=== PATIENT | female | born 1950 | race Caucasian/White ===

== ENCOUNTER 2020-04-13 18:22 | Inpatient (IN) ==
[2020-04-13 18:59] LABS: Basophils # 0.1 K/mcL (0.0-0.2); Basophils % 0.5 %; Eosinophils # 0.4 K/mcL (0.0-0.6); Eosinophils % 3.2 %; Hematocrit 40.5 % (35.3-44.9); Hemoglobin 13.4 g/dL (11.5-15.4); Immature Granulocytes % 0.5 % (0-4); Lymphocytes # 4.6 K/mcL (0.6-4.6); Lymphocytes % 33.7 %; Mean Corpuscular HGB Conc 33.1 g/dL (31.6-35.5); Mean Corpuscular Hemoglobin 31.8 pg (28.0-33.3); Mean Platelet Volume 9.4 fL (9.4-12.4); Monocytes # 1.3 K/mcL (0.0-1.3); Monocytes % 9.4 %; Neutrophils # 7.2 K/mcL (1.6-8.9); Platelet Count 221 K/mcL (140-400); Red Blood Count 4.22 M/mcL (3.82-4.97); Red Cell Distribution Width 12.8 % (11.5-14.5); Segmented Neutrophils % 52.7 %; White Blood Count 13.7 K/mcL (4.3-11.1)
[2020-04-13 19:19] LABS: BUN/Creatinine Ratio 20 (6-26); Blood Urea Nitrogen 18 mg/dL (8-23); Calcium 9.3 mg/dL (8.6-10.3); Carbon Dioxide 24 mEq/L (23-29); Chloride 103 mEq/L (98-107); Glucose 268 mg/dL (70-105); Osmolality,Calculated 293 (280-300); Sodium 136 mEq/L (136-145); eGFR For African Americans > 60 (> 60); eGFR For Non-African Americans > 60 (> 60)
[2020-04-13 19:20] LABS: Troponin I 0.03 ng/mL (< 0.04)
[2020-04-13] MEDS ORDERED: Nitroglycerin 0.4 MG TAB.SUBL SL ONE (19:46)
[2020-04-13] MEDS: Nitroglycerin 0.4 MG TAB.SUBL SL PRN ×2 (19:54→20:05)
[2020-04-13] MEDS ORDERED: Insulin Human Regular 6 UNIT in 0.9 % Sodium Chloride 10 ML IV ONE (20:01)
[2020-04-13] MEDS ORDERED: Morphine Sulfate 2 MG/ML SYRINGE IVP PRN (20:38)
[2020-04-13] MEDS ORDERED: Nitroglycerin 0.4 MG TAB.SUBL SL PRN (20:38)
[2020-04-13] MEDS ORDERED: Fluticasone Propionate Nasal 50 MCG/SPRAY BOTTLE NS PRN (20:41)
[2020-04-13] MEDS: Gabapentin 300 MG CAPSULE PO SCH (21:36)
[2020-04-13] MEDS ORDERED: Morphine Sulfate 2 MG/ML SYRINGE IVP ONE (23:06)
[2020-04-13] MEDS ORDERED: Perflutren Lipid Microsphere 1.3 ML in 0.9 % Sodium Chloride 8.7 ML IVP PRN (23:38)
[2020-04-14] MEDS ORDERED: Acetaminophen 325 MG TABLET PO PRN (00:03)
[2020-04-14] MEDS ORDERED: Ondansetron 4 MG/2 ML VIAL IVP PRN (00:03)
[2020-04-14] MEDS ORDERED: Naloxone 0.4 MG/ML INJ IVP PRN (00:03)
[2020-04-14] MEDS ORDERED: *HR* HYDROcodone/Acet 5/325 mg TABLET PO PRN (00:03)
[2020-04-14] MEDS ORDERED: D5% in Water 1,000 ML IVC PRN (00:50)
[2020-04-14] MEDS ORDERED: Dextrose Gel 15 GM/37.5 ML TUBE PO PRN ×2 (00:50)
[2020-04-14] MEDS ORDERED: *HR* Dextrose 50 % in Water (Vial) 50 ML VIAL IVP PRN (00:50)
[2020-04-14 01:32] LABS: Basophils # 0.1 K/mcL (0.0-0.2); Basophils % 0.5 %; Eosinophils # 0.5 K/mcL (0.0-0.6); Eosinophils % 3.6 %; Hematocrit 38.7 % (35.3-44.9); Hemoglobin 12.5 g/dL (11.5-15.4); Immature Granulocytes % 0.5 % (0-4); Lymphocytes # 4.8 K/mcL (0.6-4.6); Lymphocytes % 36.1 %; Mean Corpuscular HGB Conc 32.3 g/dL (31.6-35.5); Mean Corpuscular Hemoglobin 30.8 pg (28.0-33.3); Mean Corpuscular Volume 95.3 fL (83.0-100.0); Mean Platelet Volume 9.6 fL (9.4-12.4); Monocytes # 1.3 K/mcL (0.0-1.3); Monocytes % 9.8 %; Neutrophils # 6.5 K/mcL (1.6-8.9); Platelet Count 214 K/mcL (140-400); Red Blood Count 4.06 M/mcL (3.82-4.97); Red Cell Distribution Width 12.8 % (11.5-14.5); Segmented Neutrophils % 49.5 %; White Blood Count 13.2 K/mcL (4.3-11.1)
[2020-04-14 01:53] LABS: BUN/Creatinine Ratio 24 (6-26); Blood Urea Nitrogen 22 mg/dL (8-23); Calcium 9.1 mg/dL (8.6-10.3); Carbon Dioxide 23 mEq/L (23-29); Chloride 105 mEq/L (98-107); Glucose 374 mg/dL (70-105); Osmolality,Calculated 303 (280-300); Potassium 4.1 mEq/L (3.5-5.1); Sodium 137 mEq/L (136-145); eGFR For African Americans > 60 (> 60); eGFR For Non-African Americans > 60 (> 60)
[2020-04-14 01:55] LABS: Chol/HDL Ratio 4.1 (0-4.9); Magnesium 1.9 mg/dL (1.6-2.6); Phosphorous 3.3 mg/dL (2.7-4.5)
[2020-04-14 02:08] LABS: Thyroid Stimulating Hormone 1.255 mcIU/mL (0.340-5.600)
[2020-04-14] MEDS ORDERED: Regadenoson 0.4 MG/5 ML SYRINGE IVP ONE (05:55)
[2020-04-14] MEDS ORDERED: *HR* Heparin 5,000 UNIT/ML VIAL SQ SCH (06:00)
[2020-04-14] MEDS ORDERED: Insulin LISPRO 300 UNITS/3 ML VIAL SQ SCH ×2 (06:00→12:00)
[2020-04-14] MEDS ORDERED: *HR* Heparin 5,000 UNIT/ML VIAL IVP PRN ×2 (10:23)
[2020-04-14] MEDS ORDERED: *HR* Heparin 5,000 UNIT/ML VIAL IVP ONE (10:23)
[2020-04-14] MEDS ORDERED: Perflutren Lipid Microsphere 1.3 ML in 0.9 % Sodium Chloride 8.7 ML IVP PRN (10:31)
[2020-04-14] MEDS: Gabapentin 300 MG CAPSULE PO SCH ×4 (10:45→20:49)
[2020-04-14] MEDS: lisinopriL 5 MG TABLET PO SCH (10:45)
[2020-04-14] MEDS: Aspirin Enteric Coated 81 MG Tablet PO SCH (10:46)
[2020-04-14] MEDS: Heparin 25,000UNIT/250ML 1/2NS 25,000 UNIT/250 ML IV.SOLN IVC SCH (10:47)
[2020-04-14] MEDS: Ipratropium/Albuterol Neb 3 ML IH SCH ×3 (10:50→22:57)
[2020-04-14] MEDS ORDERED: ATORVASTATIN CALCIUM 80 MG PO SCH (11:00)
[2020-04-14 11:12] LABS: Estimated Average Glucose 229 mg/dl
[2020-04-14] MEDS: Metoprolol XL (24 HR) Succ 25 MG TAB.ER.24H PO SCH (12:58)
[2020-04-14] MEDS ORDERED: NON-FORMULARY MEDICATION 1 EACH EACH (Gabapentin [Neurontin] 600 MG) PO SCH (13:00)
[2020-04-14 14:01] LABS: Hematocrit 42.5 % (35.3-44.9); Hemoglobin 13.7 g/dL (11.5-15.4); Mean Corpuscular HGB Conc 32.2 g/dL (31.6-35.5); Mean Corpuscular Hemoglobin 30.7 pg (28.0-33.3); Mean Corpuscular Volume 95.3 fL (83.0-100.0); Mean Platelet Volume 9.5 fL (9.4-12.4); Platelet Count 245 K/mcL (140-400); Red Blood Count 4.46 M/mcL (3.82-4.97); White Blood Count 12.7 K/mcL (4.3-11.1)
[2020-04-14 14:55] LABS: Heparin anti-factor XA UFH 0.47 IU/mL (0.30-0.70); INR 1.1
[2020-04-14 14:56] LABS: Prothrombin Time 12.4 Seconds (9.4-12.1)
[2020-04-14] MEDS: Albuterol 2.5 MG/3 ML NEBULIZER IH SCH ×2 (15:34→15:52)
[2020-04-14] MEDS: Insulin LISPRO 300 UNITS/3 ML VIAL SQ SCH (16:34)
[2020-04-14] MEDS ORDERED: Insulin LISPRO 300 UNITS/3 ML VIAL SQ ONE (21:15)
[2020-04-14] MEDS ORDERED: Insulin DETEMIR 100 UNIT/ML X5UNITS SQ SCH (23:45)
[2020-04-15 00:48] LABS: Troponin I 0.27 ng/mL (< 0.04)
[2020-04-15 02:03] LABS: BUN/Creatinine Ratio 25 (6-26); Blood Urea Nitrogen 24 mg/dL (8-23); Calcium 9.2 mg/dL (8.6-10.3); Carbon Dioxide 21 mEq/L (23-29); Chloride 103 mEq/L (98-107); Glucose 369 mg/dL (70-105); Osmolality,Calculated 297 (280-300); Potassium 3.9 mEq/L (3.5-5.1); Sodium 134 mEq/L (136-145); eGFR For African Americans > 60 (> 60); eGFR For Non-African Americans 57 (> 60)
[2020-04-15] MEDS: Levalbuterol Neb 1.25 MG/3 ML IH SCH ×6 (04:07→23:03)
[2020-04-15] MEDS: Insulin LISPRO 300 UNITS/3 ML VIAL SQ SCH ×3 (07:47→15:38)
[2020-04-15] MEDS: Aspirin Enteric Coated 81 MG Tablet PO SCH (08:02)
[2020-04-15] MEDS: Gabapentin 300 MG CAPSULE PO SCH ×4 (08:04→21:15)
[2020-04-15] MEDS: Metoprolol XL (24 HR) Succ 25 MG TAB.ER.24H PO SCH (08:08)
[2020-04-15] MEDS: lisinopriL 5 MG TABLET PO SCH (08:08)
[2020-04-15] MEDS ORDERED: Heparin 1,000 UNITS/500 mL 500 ML ONE (09:33)
[2020-04-15] MEDS ORDERED: *HR* Heparin 10,000 UNIT/10 ML VIAL ONE (09:33)
[2020-04-15] MEDS ORDERED: ISOVUE-370 200 ML INFUS..BTL ONE (09:34)
[2020-04-15] MEDS ORDERED: 0.9 % Sodium Chloride 1,000 ML ONE (09:34)
[2020-04-15] MEDS ORDERED: *HR* Midazolam HCl 2 MG/2 ML VIAL ONE ×2 (10:44→11:19)
[2020-04-15] MEDS ORDERED: *HR* FentaNYL (PF) 100 MCG/2 ML VIAL ONE (10:44)
[2020-04-15] MEDS ORDERED: *HR* Bivalirudin 250 MG VIAL IVC ONE (11:13)
[2020-04-15] MEDS: Heparin 25,000UNIT/250ML 1/2NS 25,000 UNIT/250 ML IV.SOLN IVC SCH (12:30)
[2020-04-15] MEDS: Insulin DETEMIR 100 UNIT/ML X5UNITS SQ SCH (15:14)
[2020-04-15] MEDS ORDERED: Insulin LISPRO 300 UNITS/3 ML VIAL SQ SCH ×2 (21:00)
[2020-04-16 01:25] LABS: Basophils # 0.1 K/mcL (0.0-0.2); Basophils % 0.4 %; Eosinophils # 0.3 K/mcL (0.0-0.6); Eosinophils % 2.4 %; Hematocrit 36.8 % (35.3-44.9); Immature Granulocytes % 0.4 % (0-4); Lymphocytes # 3.9 K/mcL (0.6-4.6); Lymphocytes % 29.4 %; Mean Corpuscular HGB Conc 32.6 g/dL (31.6-35.5); Mean Corpuscular Hemoglobin 30.8 pg (28.0-33.3); Mean Corpuscular Volume 94.4 fL (83.0-100.0); Mean Platelet Volume 9.3 fL (9.4-12.4); Monocytes # 1.4 K/mcL (0.0-1.3); Monocytes % 10.4 %; Neutrophils # 7.6 K/mcL (1.6-8.9); Platelet Count 227 K/mcL (140-400); Red Cell Distribution Width 12.9 % (11.5-14.5); White Blood Count 13.4 K/mcL (4.3-11.1)
[2020-04-16 01:35] LABS: BUN/Creatinine Ratio 18 (6-26); Blood Urea Nitrogen 14 mg/dL (8-23); Calcium 8.8 mg/dL (8.6-10.3); Carbon Dioxide 24 mEq/L (23-29); Chloride 107 mEq/L (98-107); Glucose 147 mg/dL (70-105); Magnesium 1.8 mg/dL (1.6-2.6); Osmolality,Calculated 289 (280-300); Phosphorous 2.4 mg/dL (2.7-4.5); Potassium 3.7 mEq/L (3.5-5.1); Sodium 138 mEq/L (136-145); eGFR For African Americans > 60 (> 60); eGFR For Non-African Americans > 60 (> 60)
[2020-04-16] MEDS: Levalbuterol Neb 1.25 MG/3 ML IH SCH ×3 (03:40→12:03)
[2020-04-16 07:49] VITALS: BP 99/53
[2020-04-16] MEDS: Metoprolol XL (24 HR) Succ 25 MG TAB.ER.24H PO SCH (08:02)
[2020-04-16] MEDS: lisinopriL 5 MG TABLET PO SCH (08:02)
[2020-04-16] MEDS: Insulin DETEMIR 100 UNIT/ML X5UNITS SQ SCH (08:02)
[2020-04-16] MEDS: Insulin LISPRO 300 UNITS/3 ML VIAL SQ SCH (08:02)
[2020-04-16] MEDS: Aspirin Enteric Coated 81 MG Tablet PO SCH (08:03)
[2020-04-16] MEDS: Gabapentin 300 MG CAPSULE PO SCH (08:03)
== END 2020-04-16 12:53 | disposition home or self-care (01) | DRG 247 ==
LOC: EMEROOARM 18:22 → 3BNU 18:22 → SUATTDRO 20:21 → 3BNU 21:20 → SUATTDRO 04-15 16:01
PROVIDERS: ADMIT Internal Medicine; ATTEND Student in an Organized Health Care Education/Training Program

== ENCOUNTER 2020-05-03 10:50 | Inpatient (IN) ==
[~2020-05-03 10:50] MED LIST: Famotidine 20 MG/2 ML VIAL IVP ONE; Pregabalin 50 MG CAPSULE PO ONE; Ringers Solution, Lactated 1,000 ML IVC ONE
[2020-05-03] MEDS ORDERED: CeFAZolin Syr 2,000MG/20 ML 2,000 MG/20 ML SYRINGE IVPB ONE (11:08)
[2020-05-03] MEDS ORDERED: Metoclopramide 10 MG/2 ML VIAL IVP ONE (11:51)
[2020-05-03] MEDS ORDERED: Ondansetron 4 MG/2 ML VIAL IVP ONE (11:51)
[2020-05-03] MEDS ORDERED: flumazeniL 0.5 MG/5 ML VIAL IVP PRN (11:55)
[2020-05-03] MEDS ORDERED: *HR* HYDROmorphone PF 0.5 MG/0.5 ML SYRINGE IVP PRN (11:55)
[2020-05-03] MEDS ORDERED: Naloxone 0.4 MG/ML INJ IVP PRN ×2 (11:55→17:55)
[2020-05-03] MEDS ORDERED: Albuterol 2.5 MG/3 ML NEBULIZER IH PRN (11:55)
[2020-05-03] MEDS ORDERED: Ondansetron 4 MG/2 ML VIAL IVP PRN ×2 (11:55→17:55)
[2020-05-03] MEDS ORDERED: *HR* FentaNYL (PF) 100 MCG/2 ML VIAL IVP PRN (11:55)
[2020-05-03] MEDS ORDERED: Lidocaine -MPF 2% 2 ML VIAL ONE (12:09)
[2020-05-03] MEDS ORDERED: Lidocaine HCL 4 ML Topical Solution (Laryng-O-Jet Kit Sterile Pak) TP ONE (12:09)
[2020-05-03] MEDS ORDERED: Dexamethasone 4 MG/ML VIAL ONE (12:09)
[2020-05-03] MEDS ORDERED: Ondansetron 4 MG/2 ML VIAL ONE (12:09)
[2020-05-03] MEDS ORDERED: *HR* Rocuronium Bromide 50 MG/5 ML VIAL ONE (12:09)
[2020-05-03] MEDS ORDERED: *HR* Propofol 200 MG/20 ML VIAL IVP ONE (12:10)
[2020-05-03 12:20] LABS: Adenovirus Not Detected (Not Detect); Bordetella Pertussis Not Detected (Not Detect); Chlamydophila pneumoniae Not Detected (Not Detect); Coronavirus 229E Not Detected (Not Detect); Coronavirus HKU1 Not Detected (Not Detect); Coronavirus NL63 Not Detected (Not Detect); Coronavirus OC43 Not Detected (Not Detect); Human Metapneumovirus Not Detected (Not Detect); Human Rhinovirus/Enterovirus Not Detected (Not Detect); Influenza A Subtype 2009 H1 Not Detected (Not Detect); Influenza B Not Detected (Not Detect); Mycoplasma pneumoniae Not Detected (Not Detect); Parainfluenza Virus 1 Not Detected (Not Detect); Parainfluenza Virus 2 Not Detected (Not Detect); Parainfluenza Virus 3 Not Detected (Not Detect); Parainfluenza Virus 4 Not Detected (Not Detect); Respiratory Syncytial Virus Not Detected (Not Detect); SARS-CoV-2 Not Detected (Not Detect)
[2020-05-03] MEDS ORDERED: ceFAZolin 1,000 MG, Sodium Chloride IRRigation 1,000 ML IR ONE (12:35)
[2020-05-03] MEDS ORDERED: NiCARdipine 2.5 MG/10 ML Syringe IVPB ONE (12:46)
[2020-05-03] MEDS ORDERED: Heparin 1,000 UNITS/500 mL 1,000 ML ONE (12:48)
[2020-05-03] MEDS ORDERED: Protamine Sulfate 50 MG/5 ML VIAL IVP ONE (15:57)
[2020-05-03] MEDS ORDERED: *HR* HYDROMORPHONE 2 MG/ML VIAL ONE (17:00)
[2020-05-03] MEDS ORDERED: *HR* Labetalol 20 MG/4 ML SYRINGE IVP PRN (17:55)
[2020-05-03] MEDS ORDERED: *HR* HYDROcodone/Acet 5/325 mg TABLET PO PRN (17:55)
[2020-05-03] MEDS ORDERED: Acetaminophen 325 MG TABLET PO PRN (17:55)
[2020-05-03] MEDS: CeFAZolin 2 GM/120 ML BAG IVPB SCH (19:34)
[2020-05-04] MEDS: CeFAZolin 2 GM/120 ML BAG IVPB SCH ×2 (04:21→13:15)
[2020-05-04 04:28] LABS: Basophils % 0.2 %; Eosinophils % 0.1 %; Hematocrit 32.2 % (35.3-44.9); Hemoglobin 10.1 g/dL (11.5-15.4); Immature Granulocytes % 0.5 % (0-4); Lymphocytes # 2.7 K/mcL (0.6-4.6); Lymphocytes % 18.3 %; Mean Corpuscular HGB Conc 31.4 g/dL (31.6-35.5); Mean Corpuscular Hemoglobin 29.9 pg (28.0-33.3); Mean Corpuscular Volume 95.3 fL (83.0-100.0); Monocytes # 0.8 K/mcL (0.0-1.3); Monocytes % 5.4 %; Neutrophils # 11.2 K/mcL (1.6-8.9); Platelet Count 300 K/mcL (140-400); Red Blood Count 3.38 M/mcL (3.82-4.97); Red Cell Distribution Width 13.2 % (11.5-14.5); Segmented Neutrophils % 75.5 %; White Blood Count 14.8 K/mcL (4.3-11.1)
[2020-05-04 04:49] LABS: BUN/Creatinine Ratio 29 (6-26); Blood Urea Nitrogen 22 mg/dL (8-23); Calcium 8.7 mg/dL (8.6-10.3); Carbon Dioxide 24 mEq/L (23-29); Chloride 107 mEq/L (98-107); Glucose 204 mg/dL (70-105); Osmolality,Calculated 295 (280-300); Potassium 4.8 mEq/L (3.5-5.1); Sodium 138 mEq/L (136-145); eGFR For African Americans > 60 (> 60); eGFR For Non-African Americans > 60 (> 60)
[2020-05-04] MEDS ORDERED: Nitroglycerin 0.4 MG TAB.SUBL SL PRN (10:20)
[2020-05-04] MEDS ORDERED: Fluticasone Propionate Nasal 50 MCG/SPRAY BOTTLE NS SCH (10:30)
[2020-05-04] MEDS ORDERED: lisinopriL 5 MG TABLET PO SCH (10:30)
[2020-05-04] MEDS ORDERED: Aspirin Enteric Coated 81 MG Tablet PO SCH (10:30)
[2020-05-04] MEDS ORDERED: Metoprolol XL (24 HR) Succ 25 MG TAB.ER.24H PO SCH (10:30)
[2020-05-04] MEDS ORDERED: Insulin DETEMIR 100 UNIT/ML X5UNITS SQ SCH (10:30)
[2020-05-04] MEDS ORDERED: LIRAGLUTIDE SQ SCH (10:30)
[2020-05-04 11:15] VITALS: BP 117/70
[2020-05-04] MEDS ORDERED: NON-FORMULARY MEDICATION 1 EACH EACH (Insulin Aspart 0 UNIT) SQ SCH (12:00)
[2020-05-04] MEDS: Insulin LISPRO 300 UNITS/3 ML VIAL SQ SCH ×2 (12:51→13:15)
[2020-05-04] MEDS ORDERED: Gabapentin 300 MG CAPSULE PO SCH (13:00)
[2020-05-04] MEDS ORDERED: Albuterol 2.5 MG/3 ML NEBULIZER IH SCH (15:00)
[2020-05-04] MEDS ORDERED: Acetylcysteine 10% 2 ML INHSOL IH SCH (16:00)
[2020-05-04] MEDS ORDERED: Ipratropium/Albuterol Neb 3 ML IH PRN (17:00)
== END 2020-05-04 14:51 | disposition home or self-care (01) | DRG 37 ==
LOC: SAMDAY 10:50 → 2NNU 17:38
PROVIDERS: ADMIT Surgery Vascular Surgery; ATTEND Surgery Vascular Surgery